=== PATIENT | male | born 1975 | race Caucasian/White ===

== ENCOUNTER → 2020-10-22 10:42 | Outpatient (BNVA) | payer MEDICARE, MEDICAID, SELFPAY | PROVIDERS: PCP Physician Assistant; Referring Provider Physician Assistant; Visit Provider Surgery | DX: Z71.83 Encounter for nonprocreative genetic counseling (principal); Z80.3 Family history of malignant neoplasm of breast | CPT/HCPCS: 99202 ==

== ENCOUNTER 2020-10-26 07:16 | Outpatient (REF) | payer MEDICARE, MEDICAID, SELFPAY ==
[2020-10-26 08:03] LABS: Hematocrit 45.3 % (42-52); Hemoglobin 15.5 g/dl (14.0-18.0); Mean Corpuscular HGB Conc 34.2 g/dl (31.0-36.0); Mean Corpuscular Hemoglobin 30.8 pg (27.0-33.0); Mean Corpuscular Volume 90.1 fL (80-98); Mean Platelet Volume 9.4 fL (9.4-12.4); Platelet Count 243 X10*3/uL (160-400); Red Blood Count 5.03 X10*6/uL (4.60-5.80); Red Cell Distribution Width 12.4 % (11.0-16.0); White Blood Count 6.7 X10*3/uL (4.8-10.8)
[2020-10-26 08:18] LABS: Estimated Average Glucose 114 mg/dL; Hemoglobin A1c % 5.6 %
[2020-10-26 08:40] LABS: TSH reflex Free T4 1.99 uIU/mL (0.32-4.0)
[2020-10-26 10:05] LABS: Alanine Aminotransferase 37 U/L (0-40); Albumin Level 4.2 g/dL (3.5-5.0); Alkaline Phosphatase 46 U/L (39-117); Anion Gap 12 (12-20); Aspartate Amino Transferase 28 U/L (5-37); Bilirubin Total 1.3 mg/dL (0.0-1.0); Blood Urea Nitrogen 16 mg/dL (9-16); Calcium 9.3 mg/dL (8.4-10.2); Carbon Dioxide 26 mmol/L (22-29); Chloride 105 mmol/L (96-108); Cholesterol 230 mg/dL; Estimated Glomerular Filt Rate > 60; Glucose Fasting 133 mg/dL (60-99); HDL Cholesterol 36 mg/dL; LDL Cholesterol Calculated 133 mg/dl; Potassium 4.2 mmol/L (3.3-5.1); Sodium 139 mmol/L (135-145); Total Protein 6.9 g/dL (6.5-8.0); Triglycerides 308 mg/dL
== END 2020-10-26 07:17 | disposition home or self-care (01) ==
LOC: HO.LAB 07:16
PROVIDERS: PCP Physician Assistant; Visit Provider Physician Assistant
DX: Z13.220 Encounter for screening for lipoid disorders (principal); Z13.29 Encounter for screening for other suspected endocrine disorder; I10 Essential (primary) hypertension
CPT/HCPCS: 36415; 80053; 80061; 83036; 84443; 85027

== ENCOUNTER → 2021-01-14 11:02 | Outpatient (BNVA) | payer MEDICAID, SELFPAY | PROVIDERS: PCP Physician Assistant; Referring Provider Physician Assistant; Visit Provider Surgery | DX: Z15.01 Genetic susceptibility to malignant neoplasm of breast (principal); Z15.09 Genetic susceptibility to other malignant neoplasm; Z15.89 Genetic susceptibility to other disease | CPT/HCPCS: 99212 ==

== ENCOUNTER 2022-10-18 14:06 | Emergency (ER) | payer OTHER, SELFPAY ==
--- NOTE | ~2022-10-18 | XR_ITS ---
EXAMINATION: XR CHEST 2 VIEWS CLINICAL INFORMATION: Chest tightness. COMPARISON: Chest radiographs dated 05/29/2019 and 05/13/2019. TECHNIQUE: Frontal and lateral views of the chest were obtained. FINDINGS: The heart, great vessels, pulmonary vasculature and mediastinum are normal. The lungs show no focal infiltrate, effusion or pneumothorax. There is no acute osseous abnormality. XR/XR chest 2V IMPRESSION: No active cardiopulmonary disease.
[2022-10-18 14:10] VITALS: BP 138/70; PULSE 87; O2SAT 97
[2022-10-18 14:35] VITALS: BP 123/74; PULSE 74; RESP 19; TEMP 36.6; O2SAT 95; BMI 35.1
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
[2022-10-18 15:55] VITALS: BP 119/83; PULSE 62; RESP 16; TEMP 36.2; O2SAT 98
== END 2022-10-18 16:44 | disposition home or self-care (01) ==
PROVIDERS: Emergency Provider Emergency Medicine
DX: R06.02 Shortness of breath (principal); R07.89 Other chest pain; Z77.098 Contact with and (suspected) exposure to other hazardous, chiefly nonmedicinal, chemicals
CPT/HCPCS: 71046; 99283; 99285

== ENCOUNTER 2022-10-31 09:24 | Outpatient (AMB) | payer OTHER, SELFPAY ==
[2022-10-31 10:24] VITALS: BP 160/100; PULSE 68; TEMP 36.1; O2SAT 95; BMI 35.3
--- NOTE | 2022-10-31 10:24 | AM.OFFWIN_ITS ---
Intake Vital Signs 10/31/22 10:24 Height 6 ft Weight 260 lb BMI 35.3 BP 160/100 H Blood Pressure Location Lt brachial Position Sitting Pulse 68 Pulse Source Pulse Oximeter Temp 97.0 F Temp Source Temporal Artery Scan Pulse Oximetry (%) 95 Oxygen Delivery Method Room Air Intake Visit Reasons: EST/right shoulder/ arm pain/[phone] Intake Note: pt is here for c/o right shoulder and arm pain, denies injury Patient Tobacco Use Status: Former Tobacco user Quit Date: 1.5 years Allergies No Known Allergies Allergy (Verified 10/31/22 10:25) Do you need a note to return to daycare/school/sports/work: Yes HPI EST/right shoulder/ arm pain/[phone] HPI Details Patient is a 46-year-old male comes the walk-in clinic complaining of right upper back/shoulder pain that radiates down the arm. He denies acute or non trauma relating to the symptoms, but does state that he sleeps on that side and he had woken with the pain. He states that he does use his shoulders frequently with his job duties. He denies chest pain, back pain, shortness of breath, cough, weakness or dizziness, nausea vomiting or diarrhea, or other significant associated symptoms. No numbness, tingling or weakness to arm distally [facility] Medical History History of deviated nasal septum Surgical History History of Achilles tendon repair Family History Mother Diabetes Father Heart disease Afib Sister Breast cancer, Onset Age: 53 Social History Housing: House Alcohol intake: current Alcohol intake frequency: holidays/special occasions only Patient Tobacco Use Status: Former Tobacco user Quit Date: 1.5 years Tobacco use type: Cigarette e-Cigarette/Vaping Use: Never Used Second Hand Smoke Exposure: No service: No Current occupational status: unemployed Cognitive needs: No Hearing needs: No Vision needs: Yes (glasses) Review of Systems Const All systems reviewed & are unremarkable except as noted in HPI and below Physical Exam Vital Signs: Last Vital Signs Temp 97.0 F 10/31/22 10:24 Pulse 68 10/31/22 10:24 BP 160/100 H 10/31/22 10:24 Pulse Ox 95 10/31/22 10:24 Oxygen Delivery Method Room Air 10/31/22 10:24 BMI result Body Mass Index 35.3 Const General: cooperative, healthy appearing, comfortable, no acute distress, alert, awake, Physically active and well groomed; No anxious, diaphoretic, ill appearing, intoxicated appearing, poor hygiene or tired appearing Nutritional Appearance: average body habitus Limitations: no limitations Resp Effort & Inspection: normal respiratory effort Extrem Right upper extremity: normal to inspection, full ROM, normal capillary refill, shoulder/upper arm (Tender to palpation at the trapezius muscle area, no joint pain) Details: normal to inspection, axillary nerve sensory function normal, normal ROM and other (Negative empty can and crossover maneuvers); no tenderness, no swelling and no deformity and Extremity exam: right hand Details: normal to inspection, normal capillary refill, neuromotor exam normal, tendon exam normal, normal ROM of fingers and no swelling; no tenderness; no cyanosis and no edema Psych Appearance: grossly normal Mental Status: mental status grossly normal Speech and movement: Normal speech and movement present Affect: normal affect Attitude: cooperative Thought process: Normal thought process present Insight: Good insight present (Psych) Judgement: Good judgement present (Psych) Assessment & Plan Assessment & Plan (1) Muscle spasm of right shoulder: Code(s): M62.838 - Other muscle spasm Plan: Patient appears to have spasm of his right trapezius, which is likely irritating the nerve going down his arm. Plain film x-ray today shows some arthritis of the AC joint but no other osseous findings. We discussed a trial of muscle relaxers, as well as naproxen for inflammation. We also will keep him out of work for a few days so that he can rest the arm, elevated and take the muscle relaxers as needed. We discussed heat stretching and [id number] exercises to avoid adhesive capsulitis. He will follow-up with primary care. Orders: Orders XR shoulder RT min 2V 10/31/22 M62.838 - Other muscle spasm AMB EKG-In Office 10/31/22 M62.838 - Other muscle spasm Medications: New naproxen 500 mg PO BID 14 days PRN 30 tabs 0RF pain cyclobenzaprine 5 mg PO TID PRN 14 tabs 0RF muscle spasm Coding Level of Care Code Est Pt Level 4 (51703) Diagnoses Muscle spasm of right shoulder M62.838
== END 2022-10-31 11:56 | disposition home or self-care (01) ==
PROVIDERS: Visit Provider Physician Assistant Medical
DX: M62.838 Other muscle spasm (principal)
CPT/HCPCS: 93000; 99051; 99214

== ENCOUNTER 2022-10-31 11:16 | Outpatient (REF) | payer OTHER, SELFPAY ==
--- NOTE | ~2022-10-31 | XR_ITS ---
EXAMINATION: XR SHOULDER , RIGHT CLINICAL INFORMATION: Injury COMPARISON: None available at the time of this dictation. TECHNIQUE: AP external rotation, Grashey, scapular Y, and axillary views of the shoulder. Total of 4 views FINDINGS: BONES: There is no fracture or dislocation, no osteolytic or osteoblastic lesion. JOINTS: Glenohumeral joint is properly positioned. 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 SOFT TISSUE AND INCLUDED LUNG: Normal. XR/XR shoulder RT min 2V IMPRESSION: Except for mild DJD of the AC joint, exam is normal.
== END 2022-10-31 11:17 | disposition home or self-care (01) ==
LOC: HO.HMGCX 11:16
PROVIDERS: PCP Physician Assistant; Visit Provider Physician Assistant Medical
DX: M62.838 Other muscle spasm (principal)
CPT/HCPCS: 73030

== ENCOUNTER 2022-11-25 09:43 | Outpatient (REF) | payer OTHER, SELFPAY ==
--- NOTE | 2022-11-25 09:46 | EMG_ITS ---
Please see scanned EMG / Nerve Conduction Report. MTDD
== END 2022-11-25 09:44 | disposition home or self-care (01) ==
LOC: HO.NEURO 09:43
PROVIDERS: PCP Physician Assistant; Visit Provider Physician Assistant
DX: G56.21 Lesion of ulnar nerve, right upper limb (principal)
CPT/HCPCS: 95885; 95910

== ENCOUNTER 2023-07-24 00:10 | Observation (INO) | payer OTHER, SELFPAY ==
[2023-07-24] VITALS (11 sets, daily range): BP systolic 155–203; BP diastolic 66–114; PULSE 67–79; RESP 12–20; TEMP 36.3–36.8; O2SAT 92–98; BMI 35.3; BMI 33.9
[2023-07-24] MEDS: Ondansetron ODT 4 MG TAB.RAPDIS TRANSLINGU (00:54)
[2023-07-24] MEDS: HYDROmorphone HCl 1 MG/ML SYRINGE IM (00:54)
--- NOTE | 2023-07-24 01:04 | ED.GENADULT ---
HPI - General Adult General Chief complaint: Dental/Oral Stated complaint: rt side face pain Time Seen by Provider: 07/24/23 00:38 Source: patient Mode of arrival: ambulatory Limitations: no limitations History of Present Illness ED Provider: Dr. Danika Mandujano HPI narrative: Patient comes emergency room complaining of severe sharp shock like sensations in the middle of on the right side. Patient states that it started today early in the morning when he was brushing his teeth. The sharp shock-like sensation occur in the middle the cheek area of the right face , radiating towards rastafarian for about 5-10 seconds. Throughout the day, it has happened multiple times. Patient went to work the patient started having more frequent electronic shock-like sensations in the same area of the face. Patient states that when he opens his mouth, it triggers the pain in the same area. Patient states that about 1 year ago he had the same symptoms which self-resolved. Patient states that in between the shock-like sensations, he feels discomfort but it is tolerable. The shock-like sensations there 10/10 pain. Patient states that he did not have any throbbing pain or any pain that may suggest he had any dental infection or injury Related Data Previous Rx's ?Medication ?Instructions ?Recorded cyclobenzaprine 5 mg tablet 5 mg PO TID PRN muscle spasm #14 10/31/22 tabs naproxen 500 mg tablet 500 mg PO BID PRN pain 14 days #30 10/31/22 tabs Allergies Allergy/AdvReac Type Severity Reaction Status Date / Time No Known Allergies Allergy Verified 07/24/23 00:15 Review of Systems Review of Systems: Constitutional : No Weight loss, No Fever, No Chills, No Night Sweats, No Fatigue, No Malaise ENT/Mouth : No Hearing loss, No Ear Pain, No Nasal Congestion, No Sinus Pain, No Hoarseness, No sore throat, No Rhinorrhea, No Swallowing Difficulty Eyes: No Eye Pain, No Swelling, No Redness, No Foreign Body, No Discharge, No Vision Changes Cardiovascular : No Chest Pain, No SOB, No Dyspnea on Exertion, No Orthopnea, No Edema, No Palpitations Respiratory : No Cough, No Sputum, No Wheezing, No Smoke Exposure, No Dyspnea Gastrointestinal : No Nausea, No Vomiting, No Diarrhea, No Constipation, No abdominal Pain, No Hematochezia, No Melena Genitourinary : no irregular bleeding, No Dysuria, No Urinary Frequency, No Hematuria, No Urinary Incontinence, No Urgency, No Flank Pain, No Urinary Flow Changes, No Hesitancy Musculoskeletal : No joint pain, No Myalgias, No Joint Swelling Skin : No Skin Lesions, No rash Neuro : No Weakness, No Numbness, No Paresthesias, No Loss of Consciousness, No Dizziness, No Headache complaining of shock-like sensation in the middle of the face, triggered by brushing tooth or opening the mouth Psych : No Anxiety/Panic, No Depression, No SI/HI/AH/VH, No Social Issues, Heme/Lymph: No Bruising, No Bleeding,No Lymphadenopathy Endocrine : No Polyuria, No Polydipsia, No Temperature Intolerance [facility] Past Medical History Medical History History of deviated nasal septum Surgical History History of Achilles tendon repair Family History Family History Mother Diabetes Father Heart disease Afib Sister Breast cancer, Onset Age: 53 Social History Social History Housing: House Alcohol intake: current Alcohol intake frequency: holidays/special occasions only Alcohol type: beer Patient Tobacco Use Status: Former Tobacco user Tobacco use type: Cigarette e-Cigarette/Vaping Use: Never Used Second Hand Smoke Exposure: No Use of substances other than those prescribed or required for medical reasons: No Advance Directives: No Advance Directives Information Provided: Yes Do you have a plan to hurt others: No Plan service: No Current occupational status: unemployed Cognitive needs: No Hearing needs: No Vision needs: Yes (glasses) Physical Exam ED Vital Signs: Vital Signs - 24 hr 07/24/23 00:10 07/24/23 00:54 07/24/23 02:13 Temperature 98.2 F Pulse Rate 79 Respiratory Rate 18 20 16 Blood Pressure 203/114 H Pulse Oximetry 97 Oxygen Delivery Method Room Air 07/24/23 04:00 07/24/23 04:09 Temperature Pulse Rate 76 Respiratory Rate 16 12 Blood Pressure 176/102 H Pulse Oximetry 94 Oxygen Delivery Method Room Air BMI result Body Mass Index 35.3 Const Other: Appearance: Alert. Oriented X3. Patient looks in pain Eyes: Pupils equal, round and reactive to light. ENT: Pharynx normal. Patient has shock-like sensations occasionally when he does open his mouth., patient does not have any clicking sounds with opening and closing the jaw, no pain on the left side. Patient does not have any dental abscesses, gingivitis or any oral lesions, no pain to palpation in any of the teeth Neck: Normal inspection. Neck supple. No lymph nodes noted. No crepitus CVS: Normal heart rate and rhythm. Pulses normal. Normal S1 and S2 Respiratory: No respiratory distress. Breath sounds normal. No Wheezing. No rales Abdomen: Soft and nontender. No rigidity. No distention. Skin: Skin warm and dry. Normal skin color. Normal skin turgor. Extremities: No lower extremity edema. No Lacerations. No Rash Neuro: Oriented X 3. No motor deficit. No sensory deficit. Moving all extremities. No slurred speech. CN 2 through 12 grossly intact Psych: calm, cooperative, normal affect Course Course Course Narrative: -from what patient is describing, including showed in thumbs shock-like sensations in the trigeminal distribution V2, severe paroxysmal pain, unilateral, triggered by brushing teeth, opening mouth, smiling, patient likely experiencing trigeminal neuralgia affecting the maxillary zone, V2 -discussed with the patient that this is a clinical diagnosis, imaging at this time would not yield any information. Is possible the patient may need an MRI in the morning to rule out other etiologies and it may be possible to see a nerve compression. -patient was given under the tongue ondansetron and IM Dilaudid 1. However, patient did not have significant relief. -an IV was inserted, given ketorolac, 1 more mg of hydromorphone and also the 1st dose of carbamazepine 100 mg -patient states that he feels is improving but still having pain especially when he opens his mouth. -patient still having intermittent shooting pain. Patient will be getting 450mg oxcarbamazepine, starting dose -I discussed the patient with Dr. Jones from the Medicine team, we will admit for pain management. Patient agrees with plan -is possible in the morning, they may be able to get an MRI in the neurology consult. Medications Administered Discontinued Medications Generic Name Dose Route Start Last Admin Trade Name Freq PRN Reason Stop Dose Admin Carbamazepine 100 mg 07/24/23 00:59 07/24/23 01:14 Carbamazepine 100 Mg Tab.Chew PO 07/24/23 01:00 100 mg ONCE ONE Administration Gabapentin 300 mg 07/24/23 04:55 07/24/23 05:23 Gabapentin 300 Mg Capsule PO 07/24/23 04:56 300 mg ONCE STA Administration Hydromorphone HCl 1 mg 07/24/23 00:48 07/24/23 00:54 Hydromorphone Hcl 1 Mg/Ml Syringe IM 07/24/23 00:49 1 mg ONCE ONE Administration Protocol Hydromorphone HCl 1 mg 07/24/23 01:50 07/24/23 02:13 Hydromorphone Hcl 1 Mg/Ml Syringe IVPUSH 07/24/23 01:51 1 mg ONCE ONE Administration Protocol Hydromorphone HCl 1 mg 07/24/23 04:02 07/24/23 04:09 Hydromorphone Hcl 1 Mg/Ml Syringe IVPUSH 07/24/23 04:03 1 mg ONCE ONE Administration Protocol Ketorolac Tromethamine 30 mg 07/24/23 01:49 07/24/23 01:53 Ketorolac Tromethamine 30 Mg/Ml Vial IVPUSH 07/24/23 01:50 30 mg ONCE ONE Administration Ondansetron HCl 4 mg 07/24/23 00:48 07/24/23 00:54 Ondansetron Odt 4 Mg Tab.Rapdis TRANSLINGU 07/24/23 00:49 4 mg ONCE ONE Administration Oxcarbazepine 450 mg 07/24/23 04:46 07/24/23 04:48 Oxcarbazepine 150 Mg Tablet PO 07/24/23 04:47 450 mg ONCE ONE Administration Sumatriptan Succinate 6 mg 07/24/23 05:11 07/24/23 05:23 Sumatriptan Succinate 6 Mg/0.5 Ml Vial SUBCUT 07/24/23 05:12 6 mg ONCE STA Administration Medical Decision Making Differential Diagnosis Differential Diagnoses: The differential diagnosis associated with the presentation includes (Trigeminal neuralgia, complex migraine) Admission/Observation Consideration of admission/observation: Escalation of care including admission/observation considered Consult Healthcare Provider Management of the patient was discussed with: Hospitalist Lab Data MDM Lab Attestation statement: I reviewed the patient's lab results. 07/24/23 03:19 07/24/23 03:19 Labs: Lab Results 07/24/23 Range/Units 03:19 WBC 8.1 (4.8-10.8) X10*3/uL RBC 4.61 (4.60-5.80) X10*6/uL Hgb 14.8 (14.0-18.0) g/dl Hct 42.0 (42.0-52.0) % MCV 91.1 (80.0-98.0) fL MCH 32.1 (27.0-33.0) pg MCHC 35.2 (31.0-36.0) g/dl RDW 12.3 (11.0-16.0) % Plt Count 211 (160-400) X10*3/uL MPV 8.8 L (9.4-12.4) fL Immature Gran % (Auto) 0.5 H (0.0-0.4) % Neut % (Auto) 59.4 (45-73) % Lymph % (Auto) 27.4 (20-40) % Fannin % (Auto) 10.0 (2-11) % Eos % (Auto) 2.3 (0-4) % Baso % (Auto) 0.4 (0-2) % Lymph # (Auto) 2.2 (1.2-4.9) X10*3/uL Fannin # (Auto) 0.8 (0.1-1.2) X10*3/uL Eos # (Auto) 0.2 (0.0-0.4) X10*3/uL Baso # (Auto) 0.0 (0.0-0.2) X10*3/uL Abs Immat Gran (auto) 0.04 H (0.00-0.03) X10*3/uL Absolute Neuts (auto) 4.8 (2.0-8.3) x10*3/uL Absolute Nucleated RBC 0.000 (0.0-0.012) X10*3/uL Nucleated RBC % (auto) 0.0 (0.0-0.2) /100WBC ESR 3 (0-15) MM/HR Sodium 140 (135-145) mmol/L Potassium 3.9 (3.3-5.1) mmol/L Chloride 104 (96-108) mmol/L Carbon Dioxide 26 (22-29) mmol/L Anion Gap 14 (12-20) BUN 15 (9-16) mg/dL Creatinine 0.77 (0.5-1.4) mg/dL Estim Creat Clear Calc 153.8 Estimated GFR > 60 Random Glucose 122 H (60-115) mg/dL Calcium 9.2 (8.4-10.2) mg/dL C-Reactive Protein < 0.10 (< or = 0.50) mg/dL Critical Care Time Critical Care Time Critical Care Time: Yes Total Critical Care Time: 60 Attestation: I have personally provided critical care time. Time includes review of lab data, radiology results, discussion with consultants, and monitoring for potential decompensation. Intervention performed as documented. Discharge Plan Discharge Clinical Impression: Right trigeminal neuralgia Patient Disposition: Admitted As Inpatient
[2023-07-24] MEDS: carBAMazepine 100 MG TAB.CHEW PO (01:14)
[2023-07-24] MEDS: Ketorolac Tromethamine 30 MG/ML VIAL IVPUSH (01:53)
[2023-07-24] MEDS: HYDROmorphone HCl 1 MG/ML SYRINGE IVPUSH ×2 (02:13→04:09)
[2023-07-24 03:22] LABS: MANUAL DIFF FLAG NO
[2023-07-24 03:24] LABS: Basophils Percent Auto 0.4 % (0-2); Eosinophils Absolute Auto 0.2 X10*3/uL (0.0-0.4); Eosinophils Percent Auto 2.3 % (0-4); Hemoglobin 14.8 g/dl (14.0-18.0); Imm Gran Abs Auto 0.04 X10*3/uL (0.00-0.03); Imm Gran Pct Auto 0.5 % (0.0-0.4); Lymphocytes Absolute Auto 2.2 X10*3/uL (1.2-4.9); Lymphocytes Percent Auto 27.4 % (20-40); Mean Corpuscular HGB Conc 35.2 g/dl (31.0-36.0); Mean Corpuscular Hemoglobin 32.1 pg (27.0-33.0); Mean Corpuscular Volume 91.1 fL (80.0-98.0); Mean Platelet Volume 8.8 fL (9.4-12.4); Monocytes Absolute Auto 0.8 X10*3/uL (0.1-1.2); Neutrophils Absolute Auto 4.8 x10*3/uL (2.0-8.3); Neutrophils Percent Auto 59.4 % (45-73); Platelet Count 211 X10*3/uL (160-400); Red Blood Count 4.61 X10*6/uL (4.60-5.80); Red Cell Distribution Width 12.3 % (11.0-16.0); White Blood Count 8.1 X10*3/uL (4.8-10.8)
[2023-07-24 03:37] LABS: Anion Gap 14 (12-20); Blood Urea Nitrogen 15 mg/dL (9-16); Calcium 9.2 mg/dL (8.4-10.2); Carbon Dioxide 26 mmol/L (22-29); Chloride 104 mmol/L (96-108); Creatinine Clr Calc Pharmacy 153.8; Estimated Glomerular Filt Rate > 60; Glucose Random 122 mg/dL (60-115); Potassium 3.9 mmol/L (3.3-5.1); Sodium 140 mmol/L (135-145)
--- NOTE | 2023-07-24 04:22 | PC.NURSE ---
Patient is alert and oriented x3. Patient complaints of severe pain in right face/neck, pain has been ranging from 8/10-10/10 despite administration of pain medications. Plan for hospital admission for pain management, neurology consult, patient may need MRI in the morning.
[2023-07-24 04:29] LABS: C Reactive Protein < 0.10 mg/dL (< or = 0.50)
[2023-07-24 04:46] LABS: Erythrocyte Sedimentation Rate 3 MM/HR (0-15)
[2023-07-24] MEDS: OXcarbazepine 150 MG TABLET 450 MG PO (04:48)
[2023-07-24] MEDS: SUMAtriptan succinate 6 MG/0.5 ML VIAL SUBCUT (05:23)
[2023-07-24] MEDS: Gabapentin 300 MG CAPSULE PO ×5 (05:23→21:40)
--- NOTE | 2023-07-24 05:51 | P.HPHOSP_ITS ---
History of Present Illness Date of Service: 07/24/23 Attending physician on admission: Robel Dumont Chief Complaint: Right facial pain Arthur Ferrari is a 47 years old man presents to the emergency department complaining of severe right facial pain. Patient's brother was at bedside and provided most of the HPI as the patient was in severe pain. Patient was unable to speak well as this will triggers the pain. The pain started this morning and has been radiates from the right mouth corner to the right ear. It is described as a sharp like sensation. The pain increases with eating, mouth opening and tooth brushing. He has a similar episode in the past that has been self- limited. There is no history of recent dental fillings or procedures. In the ED, he was found to have stable vital signs. Blood workup including CBC, CRP and CMP unremarkable. ED tx: Zofran 4 mg IV, Dilaudid 3 mg IV (total), Tegretol 500 mg p.o., Toradol 30 mg IV Review of Systems 2 Review of Systems: All 12 systems were reviewed and normal except as noted in HPI. [facility] Medical History History of deviated nasal septum Family History Mother Diabetes Father Heart disease Afib Sister Breast cancer, Onset Age: 53 Surgical History History of Achilles tendon repair Social History Housing: House Alcohol intake: current Alcohol intake frequency: holidays/special occasions only Alcohol type: beer Patient Tobacco Use Status: Former Tobacco user Tobacco use type: Cigarette e-Cigarette/Vaping Use: Never Used Second Hand Smoke Exposure: No service: No Current occupational status: unemployed Cognitive needs: No Hearing needs: No Vision needs: Yes (glasses) Meds Allergies Allergy/AdvReac Type Severity Reaction Status Date / Time No Known Allergies Allergy Verified 07/24/23 00:15 Active Medications: Current Medications Sodium Chloride (0.9 % Sodium Chloride Flush 3 Ml Syringe) 3 ml IVFLUSH QSHIFT [facility] Physical Exam 2 Vital Signs and Narrative: Vital Signs: Last Vital Signs Temp 98.2 F 07/24/23 00:10 Pulse 76 07/24/23 04:00 Resp 12 07/24/23 04:09 BP 176/102 H 07/24/23 04:00 Pulse Ox 94 07/24/23 04:00 O2 Del Method Room Air 07/24/23 04:00 BMI result Body Mass Index 35.3 Unable to perform as the patient was in acute distress secondary to right facial pain Results Labs 07/24/23 03:19 07/24/23 03:19 Labs: Laboratory Results - last 24 hr 07/24/23 03:19 MCV 91.1 MCH 32.1 MCHC 35.2 RDW 12.3 Plt Count 211 MPV 8.8 L Immature Gran % (Auto) 0.5 H Neut % (Auto) 59.4 Lymph % (Auto) 27.4 Crawford % (Auto) 10.0 Eos % (Auto) 2.3 Baso % (Auto) 0.4 Lymph # (Auto) 2.2 Crawford # (Auto) 0.8 Eos # (Auto) 0.2 Baso # (Auto) 0.0 Abs Immat Gran (auto) 0.04 H Absolute Neuts (auto) 4.8 Absolute Nucleated RBC 0.000 Nucleated RBC % (auto) 0.0 ESR 3 Anion Gap 14 Estim Creat Clear Calc 153.8 Estimated GFR > 60 Random Glucose 122 H Calcium 9.2 C-Reactive Protein < 0.10 Assessment and Plan (1) Right trigeminal neuralgia: Status: Acute (2) Borderline high cholesterol: Status: Acute Plan Arthur Ferrari is a 47 years old man who presents to the emergency department with intractable right facial pain likely secondary to: * Trigeminal neuralgia, V3. Patient will keep in observation under the hospitalist service for pain control. We will start treatment with Imitrex 6 mg subQ as rescue therapy in addition to oxcarbazepine 450 mg PO bid and gabapentin 300 mg PO tid. Will obtain neurology consult. Quality Stroke Does the patient have a stroke diagnosis?: No VTE Prior VTE?: No VTE Risk Level:: Surgical - low VTE Device Contraindication: Treatment Not Indicated VTE Drug Contraindication: Treatment Not Indicated
--- NOTE | 2023-07-24 07:53 | PHA.MEDREC ---
Pharmacy Consult ? Medication Reconciliation Pharmacy has completed the medication reconciliation.
[2023-07-24] MEDS: 0.9 % Sodium Chloride Flush 3 ML SYRINGE IVFLUSH ×2 (08:17→15:58)
--- NOTE | 2023-07-24 10:37 | MHC.EDTECH ---
Offered patient breakfast, he asked for it to be by bedside. He did not eat due to the pain in his neck and jaw.
--- NOTE | 2023-07-24 11:17 | PM.EVENT ---
Event Note Date of Service: 07/24/23 Event Note: Day hospitalist update S: intermittent burning facial pain O: Temp Pulse Resp BP Pulse Ox O2 Del Method 97.7 F 68 18 181/104 H 98 Room Air 07/24/23 08:10 07/24/23 08:10 07/24/23 08:10 07/24/23 08:10 07/24/23 08:10 07/24/23 08:10 Gen: in no acute distress HEENT: sclera anicteric, moist mucus membranes Neck: supple Lungs: clear to auscultation bilaterally Heart: regular rate and rhythm, no murmurs Abd: soft, non-tender, non-distended Ext: no edema Skin: warm/well-perfused Neuro: alert and oriented x3, no focal findings Psych: appropriate affect A/P: d1 47yo M with no chronic PMHx presenting with severe R neuropathic pain suspicious for trigeminal neuralgia, admitted for pain control - given sumatriptan x1, IV hydromorphone x3, ketorolac 30 mg; - continue gabapentin + oxcarbazepine - Neurology consult pending VTE ppx -SCDs dispo - eventual home In my clinical judgment, the patient requires continued hospitalization for the following reasons: pain control Time Spent With Patient Time: Total time managing care of this patient today ____ minutes.
[2023-07-24] MEDS: SUMAtriptan succinate 50 MG TABLET PO (12:16)
--- NOTE | 2023-07-24 13:46 | P.CNNE_ITS ---
History of Present Illness Data of Consult Service Date: 07/24/23 Primary Care Provider: Michael Lennon PA-C HPI Reason for consult: Facial pain 47 years old man with right-sided facial pain. He said that he 1st head it about a year ago but it was not that bad. He was in hospital with extremely sharp pain and was not able to provide any meaningful history barely able to open his mouth and talk. He was sobbing. He said the pain was shooting jabbing type on right side of the face. Review of Systems 2 Review of Systems: No recent cold or flu-like illness PMFSH Past Medical History Medical History History of deviated nasal septum Family History Family History Mother Diabetes Father Heart disease Afib Sister Breast cancer, Onset Age: 53 Surgical History Surgical History History of Achilles tendon repair Social History Social History Housing: House Alcohol intake: current Alcohol intake frequency: holidays/special occasions only Alcohol type: beer Patient Tobacco Use Status: Former Tobacco user Tobacco use type: Cigarette e-Cigarette/Vaping Use: Never Used Second Hand Smoke Exposure: No service: No Current occupational status: unemployed Cognitive needs: No Hearing needs: No Vision needs: Yes (glasses) Meds Allergies Allergy/AdvReac Type Severity Reaction Status Date / Time No Known Allergies Allergy Verified 07/24/23 00:15 Active Medications: Current Medications Gabapentin (Gabapentin 300 Mg Capsule) 300 mg PO TID COUNT INCLUDES THE [facility] Last Admin: 07/24/23 08:16 Dose: 300 mg Oxcarbazepine (Oxcarbazepine 150 Mg Tablet) 450 mg PO BID@0500,1700 COUNT INCLUDES THE [facility] Sodium Chloride (0.9 % Sodium Chloride Flush 3 Ml Syringe) 3 ml IVFLUSH QSHIFT COUNT INCLUDES THE [facility] Last Admin: 07/24/23 08:17 Dose: 3 ml Home Medications ?Medication ?Instructions ?Recorded ?Confirmed ?Last Taken ?Type ibuprofen 200 mg tablet 400 mg PO Q8H PRN Pain 07/24/23 07/24/23 Unknown History Physical Exam 2 Vital Signs: Vital Signs: Last Vital Signs Temp 97.7 F 07/24/23 08:10 Pulse 68 07/24/23 08:10 Resp 18 07/24/23 08:10 BP 181/104 H 07/24/23 08:10 Pulse Ox 98 07/24/23 08:10 O2 Del Method Room Air 07/24/23 08:10 BMI result Body Mass Index 35.3 Neuro: Other: Slightly drowsy but I was able to wake him up. Right away he put his right hand on the face and started sobbing stating that the pain was severe. He was moving his face and jolts like fashion with every job of pain. There was no obvious facial weakness. Speech or language were normal. Deep tendon reflexes were trace to absent. Exam was limited. Results Labs 07/24/23 03:19 07/24/23 03:19 Labs: Short CBC 07/24/23 Range/Units 03:19 WBC 8.1 (4.8-10.8) X10*3/uL Hgb 14.8 (14.0-18.0) g/dl Hct 42.0 (42.0-52.0) % Plt Count 211 (160-400) X10*3/uL BMP 07/24/23 03:19 Sodium 140 Potassium 3.9 Chloride 104 Carbon Dioxide 26 BUN 15 Creatinine 0.77 Calcium 9.2 Assessment and Plan (1) Right trigeminal neuralgia: Status: Acute 47 years old man with right trigeminal neuralgia. At this time I recommend changing his medicines to carbamazepine 200 mg 3 times a day instead of oxcarbazepine. Carbamazepine is the most effective medicine for this type of pain. Gabapentin may also continue. I would also recommend giving him a dose of Solu-Medrol 500 mg as steroid sometimes can help. Nonsteroidal anti- inflammatory agents and Triptan its would not help. An MRI of brain with and without contrast with concentration to trigeminal nerve is recommended to rule out any mechanical lesion, which can be treated with surgical decompression. Procedures Date of Service Date of Service: 07/24/23
[2023-07-24] MEDS: carBAMazepine 200 MG TABLET PO ×2 (15:58→21:40)
[2023-07-24] MEDS: methylPREDNISolone Sod Succ 125 MG/2 ML VIAL IVPUSH (15:58)
[2023-07-24] MEDS: HYDROmorphone HCl 0.5 MG/0.5 ML SYRINGE IVPUSH ×2 (16:18→21:43)
[2023-07-25] VITALS (8 sets, daily range): BP systolic 131–170; BP diastolic 74–96; PULSE 73–91; RESP 14–18; TEMP 36–36.8; O2SAT 94–97
[2023-07-25] MEDS: 0.9 % Sodium Chloride Flush 3 ML SYRINGE IVFLUSH ×3 (07:40→20:13)
[2023-07-25] MEDS: Gabapentin 300 MG CAPSULE PO ×3 (07:40→20:12)
[2023-07-25] MEDS: carBAMazepine 200 MG TABLET PO ×3 (07:40→20:13)
--- NOTE | 2023-07-25 10:11 | HO.PM.IMPN ---
Subjective Subjective Date of Service: 07/25/23 Interval History: R-sided electric facial pain attacks are fewer and less severe no visual blurring Review of Systems Review of Systems: Yes all other systems are reviewed and are negative Physical Exam Vital Signs: Vital Signs: Last Vital Signs Temp 97.4 F 07/25/23 07:07 Pulse 75 07/25/23 07:07 Resp 16 07/25/23 07:07 BP 143/96 H 07/25/23 07:07 Pulse Ox 94 07/25/23 07:07 O2 Del Method Room Air 07/25/23 07:07 BMI result Body Mass Index 33.9 Gen: in no acute distress HEENT: sclera anicteric, moist mucus membranes Neck: supple Lungs: clear to auscultation bilaterally Heart: regular rate and rhythm, no murmurs Abd: soft, non-tender, non-distended Ext: no edema Skin: warm/well-perfused Neuro: alert and oriented x3, CN2-12 intact Psych: appropriate affect Objective Data Active Medications Carbamazepine (Carbamazepine 200 Mg Tablet) 200 mg PO TID [facility] Last Admin: 07/25/23 07:40 Dose: 200 mg Documented By: DWAINE Gabapentin (Gabapentin 300 Mg Capsule) 300 mg PO TID [facility] Last Admin: 07/25/23 07:40 Dose: 300 mg Documented By: DWAINE Hydromorphone HCl (Hydromorphone Hcl 0.5 Mg/0.5 Ml Syringe) 0.5 mg IVPUSH Q3H PRN; Protocol PRN Reason: severe pain Last Admin: 07/24/23 21:43 Dose: 0.5 mg Documented By: ISABEL Sodium Chloride (0.9 % Sodium Chloride Flush 3 Ml Syringe) 3 ml IVFLUSH [facility] Last Admin: 07/25/23 07:40 Dose: 3 ml Documented By: DWAINE Labs 07/24/23 03:19 07/24/23 03:19 Assessment and Plan (1) Right trigeminal neuralgia: Status: Acute Plan d2 47yo M with no chronic PMHx presenting with severe R neuropathic pain suspicious for trigeminal neuralgia, admitted for pain control - continue gabapentin + oxcarbazepine - Neurology consulted; given 1-dose methylprednisolone; continue gabapentin + oxcarbazpine; PO oxycodone + IV hydromorphone for pain control; MRI with and without contrast recommended and will be done tomorrow VTE ppx -SCDs dispo - eventual home In my clinical judgment, the patient requires continued hospitalization for the following reasons: pain control, neurologic workup Total time managing care of this patient today: 35 minutes. Quality Stroke Does the patient have a stroke diagnosis?: No VTE Prior VTE?: No VTE Risk Level:: Surgical - low VTE Device Contraindication: Treatment Not Indicated VTE Drug Contraindication: Treatment Not Indicated
--- NOTE | 2023-07-25 11:20 | MHC.CM.PN ---
PT LIVES WITH BROTHER IS INDEPEDENT WILL NOT NEED SERIES WHEN DCD HAS OWN RIDE HOME DC PLAN HOME NO SERVIES
[2023-07-25] MEDS: HYDROmorphone HCl 0.5 MG/0.5 ML SYRINGE IVPUSH ×2 (13:33→16:43)
[2023-07-25] MEDS: oxyCODONE HCl Immed Release 5 MG TABLET PO (20:12)
[2023-07-26 03:22] VITALS: BP 161/76; PULSE 68; RESP 16; TEMP 36.3; O2SAT 96
[2023-07-26 06:53] VITALS: BP 152/80; PULSE 62; RESP 16; TEMP 36.6; O2SAT 96
[2023-07-26 07:28] VITALS: RESP 17
[2023-07-26] MEDS: 0.9 % Sodium Chloride Flush 3 ML SYRINGE IVFLUSH (07:28)
[2023-07-26] MEDS: HYDROmorphone HCl 0.5 MG/0.5 ML SYRINGE IVPUSH (07:28)
[2023-07-26] MEDS: Gabapentin 300 MG CAPSULE PO (07:28)
[2023-07-26] MEDS: carBAMazepine 200 MG TABLET PO (07:28)
[2023-07-26] MEDS: oxyCODONE HCl Immed Release 5 MG TABLET PO (11:12)
--- NOTE | 2023-07-26 11:35 | P.DS_ITS ---
DS: Providers Provider Date of Service: 07/26/23 Date of admission: 07/24/23 05:12 Primary care physician: Michael Lennon PA-C Consults: 07/24/23 05:02 Consult to Neurology Routine Consulting Provider: [facility] Reason for consultation: Intractable trigeminal neuralgia Has provider been notified: No 07/24/23 06:14 Consult to Neurology Routine Consulting Provider: [facility] Reason for consultation: Intractable facial pain, trigeminal neuralgia Has provider been notified: No DS: Diagnosis Discharge Diagnosis (1) Right trigeminal neuralgia: Status: Acute DS: Summary Hospital Course Hospital Course: from initial hpi: 47 years old man presents to the emergency department complaining of severe right facial pain. Patient's brother was at bedside and provided most of the HPI as the patient was in severe pain. Patient was unable to speak well as this will triggers the pain. The pain started this morning and has been radiates from the right mouth corner to the right ear. It is described as a sharp like sensation. The pain increases with eating, mouth opening and tooth brushing. He has a similar episode in the past that has been self-limited. There is no history of recent dental fillings or procedures. In the ED, he was found to have stable vital signs. Blood workup including CBC, CRP and CMP unremarkable. ED tx: Zofran 4 mg IV, Dilaudid 3 mg IV (total), Tegretol 500 mg p.o., Toradol 30 mg IV hospital course: Patient was admitted for severe right trigeminal neuralgia pain. He was treated with carbamazepine and gabapentin and oxycodone with improvement. He was seen by neurology recommended MRI with and without contrast to rule out obstructing vessel which will be performed as outpatient early this week. He will follow up with Neurology and possible vascular surgery depending on results of MRI. Time Attestation Discharge Coordination Time (in mins): 32 Quality: Safe Use of Opioids Does Pt have an Active Cancer Diagnosis on the Problem List?: No Quality: Stroke Does the patient have a stroke diagnosis?: No Physical Exam Vital Signs: Vital Signs: Last Vital Signs Temp 98 F 07/26/23 06:53 Pulse 62 07/26/23 06:53 Resp 17 07/26/23 07:28 BP 152/80 H 07/26/23 06:53 Pulse Ox 96 07/26/23 06:53 O2 Del Method Room Air 07/26/23 06:53 BMI result Body Mass Index 33.9 Gen: in no acute distress HEENT: sclera anicteric, moist mucus membranes Neck: supple Lungs: clear to auscultation bilaterally Heart: regular rate and rhythm, no murmurs Abd: soft, non-tender, non-distended Ext: no edema Skin: warm/well-perfused Neuro: alert and oriented x3, CN2-12 intact Psych: appropriate affect Discharge Plan Discharge Patient Disposition: Home, Self-Care Discharge Diagnosis: trigeminal neuralgia Referrals: Michael Lennon PA-C [Primary Care Provider] - 1 Week Sol Cardona MD [Physician] - 1 Month Discharge Medications: New carbamazepine 200 mg Tablet 200 mg PO TID Qty: 90 0RF gabapentin 300 mg Capsule 300 mg PO TID Qty: 90 0RF oxycodone 5 mg capsule 5 mg PO Q4H PRN (Reason: moderate pain (scale score 5-6)) Qty: 14 0RF Rx Instructions: Partial Fill upon patient request. Discontinued ibuprofen 200 mg Tablet 400 mg PO Q8H PRN (Reason: Pain) Discharge Orders: Discharge Order (Routine); Ordered 07/26/23 Ordered By: Bharath Parish Diet: Advance to usual diet Activity on Discharge: As tolerated Stand Alone Forms: Patient Portal Discharge page Print Language: Guamanian Other Ambulatory Orders: MR head/brain wo/w con (Routine) Timeframe: 1 Day Facility: [facility] - Location: MRI Ordered By: Bharath Parish Care Plan Goals: relief of pain Health Concerns: trigeminal neuralgia Plan of Treatment: take carbamazepine [Tegretol] 200 mg 3x a day PLUS gabapentin [Neurontin] 300 mg 3x a day take oxycodone 5 mg every 4 hours as needed for severe pain only follow up with Dr Jhonatan Cardona from [facility] Neurology follow up MRI tomorrow or wednesday (call to confirm time) Assessment: see above
--- NOTE | 2023-07-26 11:41 | MHC.CM.PN ---
PT WILL DC HOME TODAY WITH NO SERVICES VIA PRIVATE TRANSPORT
== END 2023-07-26 12:57 | disposition home or self-care (01) ==
LOC: HO.ED 04:01 → HO.EDOVER 05:13 → HO.S3 13:22
PROVIDERS: Admitting Provider Internal Medicine; Emergency Provider Emergency Medicine; PCP Physician Assistant; Visit Provider Internal Medicine
DX: G50.0 Trigeminal neuralgia (principal); R51.9 Headache, unspecified; Z83.3 Family history of diabetes mellitus; Z82.49 Family history of ischemic heart disease and other diseases of the circulatory system
CPT/HCPCS: 36415; 80048; 85025; 85652; 86140; 96372; 96374; 96375; 96376; 99221; 99285; J1170; J1885; J2919; J3030

== ENCOUNTER → 2023-07-24 05:12 | Outpatient (BNV) | payer OTHER, SELFPAY | PROVIDERS: Admitting Provider Internal Medicine; Emergency Provider Emergency Medicine; PCP Physician Assistant; Visit Provider Psychiatry & Neurology Neurology | DX: G50.0 Trigeminal neuralgia (principal) | CPT/HCPCS: 99222 ==

== ENCOUNTER → 2023-07-24 05:12 | Outpatient (BNV) | payer OTHER, SELFPAY | PROVIDERS: Admitting Provider Internal Medicine; Emergency Provider Emergency Medicine; PCP Physician Assistant; Visit Provider Family Medicine | DX: G50.0 Trigeminal neuralgia (principal); E78.9 Disorder of lipoprotein metabolism, unspecified | CPT/HCPCS: 99222; 99232; 99239; 99499 ==

== ENCOUNTER 2023-08-05 13:10 | Outpatient (REF) | payer OTHER, SELFPAY ==
--- NOTE | ~2023-08-05 | MR_ITS ---
EXAMINATION: MR BRAIN WITHOUT AND WITH CONTRAST CLINICAL INFORMATION: Severe right-sided facial pain. Trigeminal neuralgia. COMPARISON: CT head from 08/28/2015. TECHNIQUE: Multiplanar, multisequence MRI of the brain was obtained using a skull base protocol without and following the administration of 10 mL of Gadavist intravenous contrast. FINDINGS: No focal restricted diffusion is demonstrated to suggest acute or subacute cerebral ischemia. No evidence of acute or chronic hemorrhagic products on heme-sensitive imaging. Scattered nonspecific periventricular and deep white matter T2 FLAIR hyperintensities. The ventricles are normal in morphology and size. No abnormal mass effect. No midline shift. Normal appearance of the pituitary gland. Normal positioning of the cerebellar tonsils. No mass of the cerebellopontine angles. Normal appearance of the bilateral cranial nerve V nerve roots. Normal appearance of Meckel's caves bilaterally. 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 Normal appearance of the right-sided cranial nerve VII and VIII nerve root entry sites. No demonstrated abnormal signal change within the adjacent brainstem. No edema near the nerve root entry sites. Otherwise, normal appearance of the cranial nerve V, VII, and VIII nerve roots. Normal appearance of the internal auditory canals without enhancing mass lesions. No abnormal enhancement along the course of the facial nerves bilaterally. Normal appearance of the labyrinthine structures without loss of T2 signal or abnormal enhancement. Normal arterial and venous vascular flow voids are present. No abnormal intracranial contrast enhancement. Normal, homogeneous marrow signal. Moderate mucosal thickening of the right-sided atelectatic maxillary sinus. Mild mucosal thickening of the remaining paranasal sinuses. Mild rightward nasal septal deviation. No signal abnormalities within the mastoids. MR/MR head/brain wo/w con IMPRESSION: 1. No acute intracranial abnormalities. No abnormal intracranial enhancement. 2. Mild nonspecific white matter changes. 3. 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 No demonstrated abnormal signal change within the adjacent brainstem. 4. Moderate mucosal thickening of the right-sided atelectatic maxillary sinus.
[2023-08-05] MEDS: gadobutroL 10 ML VIAL IVPUSH (14:35)
== END 2023-08-05 13:11 | disposition home or self-care (01) ==
LOC: HO.MRI 13:10
PROVIDERS: Visit Provider Internal Medicine
DX: G50.0 Trigeminal neuralgia (principal)
CPT/HCPCS: 70553; A9585

== ENCOUNTER 2023-10-20 10:00 | Outpatient (AMB) | payer OTHER, SELFPAY ==
--- NOTE | 2023-10-20 10:21 | A.OFFPC_ITS ---
Vital Signs 10/20/23 10:22 Height 6 ft Weight 257 lb BMI 34.9 BP 132/80 Blood Pressure Location Lt brachial Position Sitting Respiration 16 Pulse 63 Pulse Source Pulse Oximeter Pulse Oximetry (%) 94 Oxygen Delivery Method Room Air Intake Visit Reasons: chk up f/u [employer] Required: No Accompanied by: Self / Same As Patient Allergies No Known Allergies Allergy (Verified 10/20/23 10:24) Tobacco use date assessed: 10/20/23 Dental Screening Dental Screen Date: 10/20/23 Did you have a dental visit in the last 12 months?: Yes Did you have a dental problem in the last 6 months where you did not have access to dental care?: No Was dental information given to patient?: Patient has dentist [facility] Medical History History of deviated nasal septum Surgical History History of Achilles tendon repair Family History Mother Diabetes Father Heart disease Afib Sister Breast cancer, Onset Age: 53 Social History Housing: House Alcohol intake: current Alcohol intake frequency: holidays/special occasions only Alcohol type: beer Patient Tobacco Use Status: Former Tobacco user Tobacco use type: Cigarette e-Cigarette/Vaping Use: Never Used Second Hand Smoke Exposure: No service: No Current occupational status: unemployed Cognitive needs: No Hearing needs: No Vision needs: Yes (glasses) Questionnaire PHQ-9 Over the last 2 weeks, how often have you been bothered by any of the following problems? 1. Little interest or pleasure in doing things: not at all 2. Feeling down, depressed, or hopeless: not at all 3. Trouble falling or staying asleep, or sleeping too much: not at all 4. Feeling tired or having little energy: not at all 5. Poor appetite or overeating: not at all 6. Feeling bad about yourself - or that you are a failure or have let yourself or your family down: not at all 7. Trouble concentrating on things, such as reading the newspaper or watching television: not at all 8. Moving or speaking so slowly that other people could have noticed. Or the opposite - being so fidgety or restless that you have been moving around a lot more than usual: not at all 9. Thoughts that you would be better off or of hurting yourself in some way: not at all Total score: 0 Depression Screening Interpretation: Negative Depression Screening Done: Yes 13244 - PHQ-9 Billing: Yes Source: Developed by Drs. Ming Hawkins, Radha Mcnamara, Nathan Bettencourt and colleagues, with an educational magdalena from [employer]. Thrive Questionnaire Date Thrive assessed: 07/25/23 AUDIT C Alcohol Use Questionnaire (AUDIT-C) 1. How often do you have a drink containing alcohol?: Monthly or less 2. How many drinks containing alcohol do you have on a typical day when you are drinking?: 1 or 2 3. How often do you have six or more drinks on one occasion?: Never Total Score: 1 CHIN-7 AMB Questionnaire CHIN-7 Date CHIN - 7 assessed: 10/20/23 Feeling nervous, anxious, or on edge: 2 = More than half the days Not being able to stop or control worryin = Several days Worrying too much about different things: 2 = More than half the days Trouble relaxin = Several days Being so restless that it is hard to sit still: 1 = Several days Becoming easily annoyed or irritable: 1 = Several days Feeling afraid as if something awful might happen: 1 = Several days Total CHIN-7 score (0-4 normal; 5-9 mild; 10-14 moderate; 15-21 severe): 9 Source: Developed by Drs. Ming Hawkins, Radha Mcnamara, Nathan Bettencourt and colleagues, with an educational magdalena from [employer]. CHIN-7 Assessment Billing CHIN-7 Assessment Tool: CHIN-7 Assessment 33382 Physical exam (Primary Care) Vital Signs: Last Vital Signs Pulse 63 10/20/23 10:22 Resp 16 10/20/23 10:22 BP 132/80 10/20/23 10:22 Pulse Ox 94 10/20/23 10:22 Oxygen Delivery Method Room Air 10/20/23 10:22 BMI result Body Mass Index 34.9 Tobacco/Smoking Status: Tobacco use Status Tobacco use date assessed 10/20/23 10/20/23 10:30 Patient Tobacco Use Status Former Tobacco user 10/20/23 10:30 Tobacco use type Cigarette 10/20/23 10:30 e-Cigarette/Vaping Use Never Used 10/20/23 10:30 PHQ-9: PHQ-9 Score PHQ-9: Total score 0 10/20/23 10:30 Depression Screening Interpretation: Negative Thrive Assessment: Date of Thrive Assessment Date Thrive assessed 07/25/23 10/20/23 10:30 Coding Additional Codes CHIN-7 Assessment Billing - CHIN-7 Assessment Tool: CHIN-7 Assessment [id number] ([id number])
[2023-10-20 10:22] VITALS: BP 132/80; PULSE 63; RESP 16; O2SAT 94; BMI 34.9
--- NOTE | 2023-10-20 10:35 | AM.OFFVISMDC ---
Intake Vital Signs 10/20/23 10:22 10/20/23 10:36 Height 6 ft Weight 257 lb BMI 34.9 34.9 BP 132/80 Blood Pressure Location Lt brachial Position Sitting Respiration 16 Pulse 63 Pulse Source Pulse Oximeter Pulse Oximetry (%) 94 Oxygen Delivery Method Room Air Intake Visit Reasons: chk up f/u Intake Note: Patient is here for an Annual Wellness Visit. 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 Patient's past medical history significant for impaired glucose metabolism, hyperlipidemia, trigeminal neuralgia. Recently seen at [facility] for acute right-sided facial numbness and pain. 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 Has followed up with Neurology and has been started on carbamazepine and gabapentin which has been resolving his symptoms. Also reports having intermittent neck pain with radiculopathy down right upper extremity. He is interested in doing physical therapy. Today we discussed the [place] of care and end of life planning. We also reviewed his comprehensive care plan that was scanned into chart. Vaccines: Up-to-date with COVID vaccine, tetanus vaccine and pneumonia vaccine, considering flu vaccine Colorectal cancer screening- willing to do Cologuard HPI Comments History of Present Illness Details reviewed past medical history- yes reviewed surgical / hospitalization history- yes reviewed current medications- yes reviewed family history- yes home safety throw rugs? grab bars? raised toilet seat? working smoke detectors? activities of daily living difficulty bathing or showering? difficulty dressing? difficulty using the toilet? difficulty getting in and out of bed? difficulty walking? receives help from other person's with any of the above tasks? instrumental activities of daily living uses telephone - gets to place out of walking distance- go shopping for groceries- repairs own meals- does own minor home maintenance- does own laundry- does own housework- manages own money- currently takes medication- end of life planning discussed advanced directives- yes advanced directives on file? discussed wishes expressed in advanced directives. fall risk have you had any falls with injuries in the past year? have you had 2 or more falls in the past year? fall risk assessment: [facility] Medical History History of deviated nasal septum Surgical History History of Achilles tendon repair Family History Mother Diabetes Father Heart disease Afib Sister Breast cancer, Onset Age: 53 Social History Housing: House Alcohol intake: current Alcohol intake frequency: holidays/special occasions only Alcohol type: beer Patient Tobacco Use Status: Former Tobacco user Tobacco use type: Cigarette e-Cigarette/Vaping Use: Never Used Second Hand Smoke Exposure: No service: No Current occupational status: unemployed Cognitive needs: No Hearing needs: No Vision needs: Yes (glasses) Questionnaire Medicare Wellness Checkup What [age] 65-67 What gender do you identify with?: male During the past 4 weeks, how much have you been bothered by emotional problems such as feeling anxious, depressed, irritable, sad or downhearted, and blue?: moderately During the past 4 weeks, has your physical & emotional health limited your social activities with family, friends, neighbors, or groups?: not at all During the past 4 weeks, how much bodily pain have you generally had?: moderate pain During the past 4 weeks, was someone available to help you if you needed & wanted help?: yes, some During the past 4 weeks, what was the hardest physical activity you could do for at least 2 minutes?: moderate Can you get to places out of walking distance without help? (For eg., can you travel alone on buses, taxis or drive your car?): Yes Can you go shopping for groceries or clothes without someone's help?: Yes Can you prepare your own meals?: Yes Can you do your housework without help?: Yes Because of any health problems, do you need the help of another person with your personal care needs such as eating, bathing, dressing or getting around the house?: No Can you handle your own money without help?: Yes During the past 4 weeks, how would you rate your health in general?: good During the past 4 weeks how have things been going for you?: pretty well Are you having difficulties driving your car?: no Do you always fasten your seat belt when you are in a car?: yes, usually During past 4 weeks, have you been bothered by the following: never: Sexual problems?, Trouble eating well?, Teeth or denture problems? and Problems using the telephone?, seldom: Falling or dizzy when standing up and sometimes: Tiredness or fatigue? Have you fallen 2 or more times in the past year?: No Are you afraid of falling?: No Are you a smoker?: no During the past 4 weeks, how many drinks of wine, beer, or other alcoholic beverages did you have?: 2-5 drinks per week Do you exercise for about 20 minutes 3 or more times a week?: no, I usually do not exercise this much Have you been given information to help with the following?: no: Hazards in your house that might hurt you? and no: Keeping track of your medications? How often do you have trouble taking medicines the way you have been told to take them?: I always take medicine as prescribed How confident are you that you can control & manage most of your health problems?: very confident What is your race?: White Mini Mental State Exam (MMSE) Orientation What is the (year) (season) (date) (day) (month)?: year Where are we (state) (county) (town or city) (hospital) (floor)?: town or city Attention & Calculation (CHOOSE ONE) Ask pt to begin with 100 & count backward by 7. Stop after 5 repeats. If pt cannot ask them to spell the word WORLD backward.: 93 Spell WORLD backwards (DLROW): 5 letters Score Score: 8 Activity of Daily Living Bathing - sponge bath, tub bath or shower: receives no assistance (gets in/out by self, if usual bathing means Dressing - getting clothes from closets & drawers, including inner/outer garments & fasteners.: gets clothes & gets completely dressed without help Toileting - going to the 'toilet room' for urine/bowel elimination & cleaning self/arranging clothes: goes to toilet room, cleans self, arranges clothes without help Transfer: moves in & out of bed and chair without help (may use support object) Continence: controls urination/bowel movements completely by self Feeding: feeds self without help Total Score: 0 Information obtained from: patient Using telephone: independent Traveling: independent Shopping: independent Preparing meals: independent Housework: independent Taking medicine: independent Managing money: independent PHQ-9 Over the last 2 weeks, how often have you been bothered by any of the following problems? 1. Little interest or pleasure in doing things: several days 2. Feeling down, depressed, or hopeless: not at all 3. Trouble falling or staying asleep, or sleeping too much: more than half the days 4. Feeling tired or having little energy: several days 5. Poor appetite or overeating: several days 6. Feeling bad about yourself - or that you are a failure or have let yourself or your family down: not at all 7. Trouble concentrating on things, such as reading the newspaper or watching television: not at all 8. Moving or speaking so slowly that other people could have noticed. Or the opposite - being so fidgety or restless that you have been moving around a lot more than usual: not at all 9. Thoughts that you would be better off or of hurting yourself in some way: not at all Total score: 5 Depression Screening Interpretation: Positive Depression Screening Follow-up: Existing condition and Declines treatment Depression Screening Done: Yes 05609 - PHQ-9 Billing: Yes Source: Developed by Drs. Ming Hawkins, Radha Mcnamara, Nathan Bettencourt and colleagues, with an educational magdalena from [employer]. Physical Exam Vital Signs: Last Vital Signs Pulse 63 10/20/23 10:22 Resp 16 10/20/23 10:22 BP 132/80 10/20/23 10:22 Pulse Ox 94 10/20/23 10:22 Oxygen Delivery Method Room Air 10/20/23 10:22 BMI result Body Mass Index 34.9 HEENT Other: hearing screening whisper test- pass Eyes Other: vision screening- 20 0 OS OD OU Other: urinary incontinence? no Neuro Other: balance Romberg- normal tandem walk test- able walk-in turned test- able rise from sit to stand- within 2 seconds Results AMB Hemoglobin A1c AMB Hemoglobin A1c 5.5 % Last Edit by ERICH Billings on 10/20/23 10:40 Results Reviewed Results Reviewed: Laboratory Last Values Hgb A1c (Clinic) 5.5 % (4.0-6.0) 10/20/23 10:39 Assessment & Plan Assessment & Plan (1) Annual wellness visit: Code(s): Z00.00 - Encounter for general adult medical examination without abnormal findings (2) Colon cancer screening: Code(s): Z12.11 - Encounter for screening for malignant neoplasm of colon Plan: Willing to do Cologuard (3) Cervical radiculopathy: Code(s): M54.12 - Radiculopathy, cervical region Plan: Has been having intermittent cervical spine pain that often radiates down right upper extremity. Interested in doing formal physical therapy. Plan As per [facility] Orders: Orders Hemoglobin A1c 10/20/23 R73.09 - Other abnormal glucose Comprehensive [place]. Panel Fast 10/20/23 R73.09 - Other abnormal glucose Lipid Panel 10/20/23 E78.9 - Disorder of lipoprotein metabolism, unspecified PT Evaluation and Treatment 10/20/23 M54.12 - Radiculopathy, cervical region AMB Hemoglobin A1c 10/20/23 Z13.1 - Encounter for screening for diabetes mellitus Prostate Specific Antigen Scr 10/20/23 Z12.11 - Encounter for screening for malignant neoplasm of colon, Z12.5 - Encounter for screening for malignant neoplasm of prostate Complete Blood Count no Diff 10/20/23 E78.9 - Disorder of lipoprotein metabolism, unspecified Referrals Cologuard Test Z12.11 - Encounter for screening for malignant neoplasm of colon Medications: New blood pressure test kit-large As directed 1 ea 0RF I10 - Essential (primary) hypertension Quality Reporting (2019) Depression/Bipolar (159/160/161/177) PHQ-9: Total score: 5 Coding Level of Care Code Medicare First (G0438) Est Pt Level 3 (36694) Diagnoses Annual wellness visit Z00.00 Colon cancer screening Z12.11 Cervical radiculopathy M54.12 CPT Codes Advance Care Planning - Time spent: 1-15 minutes, not on file ([id number]) Advance Care Planning Advance Care Planning discussion: Exists, not on file Date of discussion: 10/20/23 Forms completed: KIRK Time spent: 1-15 minutes, not on file Actual minutes spent: 4
[2023-10-20 10:36] VITALS: BMI 34.9
== END 2023-10-20 11:11 | disposition home or self-care (01) ==
PROVIDERS: PCP Physician Assistant; Visit Provider Physician Assistant
DX: Z00.00 Encounter for general adult medical examination without abnormal findings (principal); R73.09 Other abnormal glucose; E78.5 Hyperlipidemia, unspecified; M54.12 Radiculopathy, cervical region
CPT/HCPCS: 1124F; 83036; 99396

== ENCOUNTER 2024-01-10 15:36 | Outpatient (AMB) | payer OTHER, SELFPAY ==
--- NOTE | 2024-01-10 15:47 | MHC.OFFWIV ---
Intake Vital Signs 01/10/24 15:52 Height 6 ft Weight 261 lb BMI 35.4 BP 140/80 H Blood Pressure Location Rt brachial Position Sitting Pulse 70 Pulse Source Pulse Oximeter Pulse Oximetry (%) 97 Oxygen Delivery Method Room Air Intake Visit Reasons: EP-rt knee pain-work injury Intake Note: Patient here for right knee pain, injured while at work last wednesday. Patient Tobacco Use Status: Former Tobacco user Allergies No Known Allergies Allergy (Verified 01/10/24 15:53) Do you need a note to return to daycare/school/sports/work: Yes HPI EP-rt knee pain-work injury HPI Details This note is constructed using voice recognition software. While every effort has been made to ensure accuracy, round kiln drawer errors may have been included. The patient is a 48 year old male who presents to the clinic today with right knee pain for the past one-week. He reports that he works typically doing a different job, but for the last couple of weeks he has been feeling in doing a job that involves lots of standing, stooping, bending, lifting, twisting, and he had been doing quite a bit of twisting of his knee prior to the injury. He reports that he woke up the next day feeling quite sore on the medial aspect of her of his knee, he tried some ibuprofen which helped a little but did not completely resolve his pain. The pain seems to be worse since symptom onset. He reports that he is having more difficulty going down the stairs, or when he is going from sitting to standing. He denies redness, warmth. He does report some limping. [facility] Medical History History of deviated nasal septum Surgical History History of Achilles tendon repair Family History Mother Diabetes Father Heart disease Afib Sister Breast cancer, Onset Age: 53 Social History Housing: House Alcohol intake: current Alcohol intake frequency: holidays/special occasions only Alcohol type: beer Patient Tobacco Use Status: Former Tobacco user Tobacco use type: Cigarette e-Cigarette/Vaping Use: Never Used Second Hand Smoke Exposure: No service: No Current occupational status: unemployed Cognitive needs: No Hearing needs: No Vision needs: Yes (glasses) Review of Systems Const All systems reviewed & are unremarkable except as noted in HPI and below Physical Exam Vital Signs: Last Vital Signs Pulse 70 01/10/24 15:52 BP 140/80 H 01/10/24 15:52 Pulse Ox 97 01/10/24 15:52 Oxygen Delivery Method Room Air 01/10/24 15:52 BMI result Body Mass Index 35.4 Const General: cooperative, healthy appearing, comfortable, no acute distress and well developed Orientation/consciousness: patient oriented x3 Limitations: no limitations Resp Effort & Inspection: normal respiratory effort and able to speak in complete sentences Skin General skin exam: no rashes or lesions noted Neuro General: patient oriented x3 Extrem Other: Right knee full range of motion. Medial joint line tenderness on valgus maneuver. No erythema, warmth, ecchymosis. Distal neurovascular exam intact. Strength 5/5. General: Yes normal to inspection Assessment & Plan Assessment & Plan (1) Right knee sprain: Code(s): S83.91XA - Sprain of unspecified site of right knee, initial encounter Qualifiers: Encounter type: initial encounter Involved ligament of knee: medial collateral ligament Qualified Code(s): S83.411A - Sprain of medial collateral ligament of right knee, initial encounter Plan: Advised rest, ice, compression, elevation. Patient had not been previously doing compression, Kirit wrap up provided. Offered crutches, however patient declined. Letter provided for 2 days off from work, and restrictions on returned to work. Advised patient to have repeat examination should symptoms persist or worsen. Plan See above for full details and plan. Coding Level of Care Code Est Pt Level 3 (56464) Diagnoses Sprain of medial collateral ligament of right knee, initial encounter S83.411A Encounter type: initial encounter Involved ligament of knee: medial collateral ligament
[2024-01-10 15:52] VITALS: BP 140/80; PULSE 70; O2SAT 97; BMI 35.4
== END 2024-01-10 16:30 | disposition home or self-care (01) ==
PROVIDERS: PCP Physician Assistant; Visit Provider Registered Nurse
DX: S83.411A Sprain of medial collateral ligament of right knee, initial encounter (principal)

== ENCOUNTER → 2024-01-10 15:36 | Outpatient (BNVA) | payer OTHER, SELFPAY | PROVIDERS: PCP Physician Assistant; Visit Provider Registered Nurse | DX: S83.91XA Sprain of unspecified site of right knee, initial encounter (principal); X58.XXXA Exposure to other specified factors, initial encounter; Y93.9 Activity, unspecified; Y92.9 Unspecified place or not applicable; Y99.0 Civilian activity done for income or pay | CPT/HCPCS: 99212 ==

== ENCOUNTER 2024-01-31 09:05 | Outpatient (AMB) | payer OTHER, SELFPAY ==
--- NOTE | 2024-01-31 09:20 | MHC.PC.OV ---
Vital Signs 01/31/24 09:21 Height 6 ft Weight 264 lb 8 oz BMI 35.9 BP 130/78 Blood Pressure Location Lt brachial Position Sitting Pulse 74 Pulse Source Pulse Oximeter Pulse Oximetry (%) 98 Oxygen Delivery Method Room Air Intake Visit Reasons: rt leg pain regard to injury from 01/09 Intake Note: Patient is here to follow up on right leg pain due to work injury on 01/03/24. Requesting for return to work full duty letter. 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 by: Self / Same As Patient Allergies No Known Allergies Allergy (Verified 01/31/24 09:59) Medication List - Last Reconciled 01/31/24 by Jose Albert MD blood pressure test kit-large As directed carbamazepine 200 mg PO TID Tobacco use date assessed: 01/31/24 Dental Screening Dental Screen Date: 01/31/24 Did you have a dental visit in the last 12 months?: Yes Did you have a dental problem in the last 6 months where you did not have access to dental care?: No Was dental information given to patient?: Patient has dentist [facility] Medical History History of deviated nasal septum Surgical History History of Achilles tendon repair Family History Mother Diabetes Father Heart disease Afib Sister Breast cancer, Onset Age: 53 Social History Housing: House Alcohol intake: current Alcohol intake frequency: holidays/special occasions only Alcohol type: beer Patient Tobacco Use Status: Former Tobacco user Tobacco use type: Cigarette e-Cigarette/Vaping Use: Never Used Second Hand Smoke Exposure: Yes service: No Current occupational status: unemployed Cognitive needs: No Hearing needs: No Vision needs: Yes (glasses) Questionnaire Thrive Questionnaire Date Thrive assessed: 07/25/23 AUDIT C Alcohol Use Questionnaire (AUDIT-C) 1. How often do you have a drink containing alcohol?: Monthly or less 2. How many drinks containing alcohol do you have on a typical day when you are drinking?: 1 or 2 Total Score: 1 CHIN-7 AMB Questionnaire CHIN-7 Date CHIN - 7 assessed: 01/31/24 Feeling nervous, anxious, or on edge: 0 = Not at all Not being able to stop or control worryin = Not at all Worrying too much about different things: 0 = Not at all Trouble relaxin = Not at all Being so restless that it is hard to sit still: 0 = Not at all Becoming easily annoyed or irritable: 0 = Not at all Feeling afraid as if something awful might happen: 0 = Not at all Total CHIN-7 score (0-4 normal; 5-9 mild; 10-14 moderate; 15-21 severe): 0 Source: Developed by Drs. Ming Hawkins, Radha Mcnamara, Nathan Bettencourt and colleagues, with an educational magdalena from [employer]. Physical exam (Primary Care) Vital Signs: Last Vital Signs Pulse 74 01/31/24 09:21 BP 130/78 01/31/24 09:21 Pulse Ox 98 01/31/24 09:21 Oxygen Delivery Method Room Air 01/31/24 09:21 BMI result Body Mass Index 35.9 Tobacco/Smoking Status: Tobacco use Status Tobacco use date assessed 01/31/24 01/31/24 09:28 Patient Tobacco Use Status Former Tobacco user 01/31/24 09:28 Tobacco use type Cigarette 01/31/24 09:28 e-Cigarette/Vaping Use Never Used 01/31/24 09:28 Thrive Assessment: Date of Thrive Assessment Date Thrive assessed 07/25/23 01/31/24 09:28 Coding Level of Care Code Est Pt Level 3 (81368) Complex EM visit Add On G2211 Diagnoses Right knee sprain S83.91XA Assessment & Plan Assessment & Plan (1) Right knee sprain: Code(s): S83.91XA - Sprain of unspecified site of right knee, initial encounter Plan: History of Present Illness The patient is a 48-year-old male presenting with a right knee ligament injury. The injury occurred on January 02 during a work-related activity that involved continuous bending and lifting. Initial symptoms included significant pain and discomfort in the right knee, prompting a visit to urgent care on January 09. The attending clinician at urgent care suggested the pain was likely due to a ligament issue and recommended resting and icing the knee while being out of work for three days. Further accommodations were suggested, which included sitting down or icing the knee as necessary. The patient reports improvement in symptoms since then, though some soreness persists. Currently, the patient has been absent from work for two weeks and is seeking clearance to return without restrictions. 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 - Job Demands: Occasionally transferred to other departments, which require additional physical activity such as bending and lifting. Review of Systems - Musculoskeletal: Reports residual soreness in the right knee. Physical Exam General: Cooperative and healthy appearing Nutritional Appearance: Well nourished Orientation/consciousness: Patient oriented x3 Limitations: No limitations Head: Normal to inspection General: Appearance normal, both eyes and all related structures Neck: Normal visual inspection Chest: Normal palpation of entire chest wall Respiratory: Normal respiratory effort Neurology: Patient oriented x3 Results Plan - Assess and confirm the resolution of the right knee ligament injury. - Provide a note permitting return to work without restrictions based on the current evaluation. Patient was informed and verbally consented to the use of an ambient scribe for clinic note documentation during this visit. Discussion Notes I have discussed with the patient that his right knee appears to have improved sufficiently to return to work without restrictions. We reviewed that maintaining muscle strength and flexibility will be important to prevent future injuries. The patient understands that if symptoms worsen, further evaluation may be needed. All questions were addressed, and the patient agreed with the plan moving forward. Patient Instructions - Return to work as discussed with no restrictions on work duties. - Continue with icing and resting the knee as needed if soreness persists. - If symptoms worsen or do not continue to improve, seek further evaluation.
[2024-01-31 09:21] VITALS: BP 130/78; PULSE 74; O2SAT 98; BMI 35.9
== END 2024-01-31 10:12 | disposition home or self-care (01) ==
PROVIDERS: PCP Physician Assistant; Visit Provider Internal Medicine
DX: S83.91XA Sprain of unspecified site of right knee, initial encounter (principal)

== ENCOUNTER → 2024-01-31 09:05 | Outpatient (BNVA) | payer OTHER, SELFPAY | PROVIDERS: PCP Physician Assistant; Visit Provider Internal Medicine | DX: S83.91XD Sprain of unspecified site of right knee, subsequent encounter (principal); X58.XXXD Exposure to other specified factors, subsequent encounter | CPT/HCPCS: 96127; 99212 ==

== ENCOUNTER 2024-04-29 06:47 | Outpatient (REF) | payer OTHER, SELFPAY ==
[2024-04-29 08:39] LABS: Hematocrit 44.3 % (42.0-52.0); Hemoglobin 15.7 g/dl (14.0-18.0); Mean Corpuscular HGB Conc 35.4 g/dl (31.0-36.0); Mean Corpuscular Hemoglobin 31.7 pg (27.0-33.0); Mean Corpuscular Volume 89.3 fL (80.0-98.0); Mean Platelet Volume 8.6 fL (9.4-12.4); Platelet Count 213 X10*3/uL (160-400); Red Blood Count 4.96 X10*6/uL (4.60-5.80); Red Cell Distribution Width 12.1 % (11.0-16.0); White Blood Count 6.3 X10*3/uL (4.8-10.8)
[2024-04-29 08:52] LABS: Estimated Average Glucose 108 mg/dL; Hemoglobin A1c % 5.4 % (<6.0)
[2024-04-29 09:21] LABS: Alanine Aminotransferase 28 U/L (0-40); Albumin Level 4.3 g/dL (3.5-5.0); Alkaline Phosphatase 63 U/L (39-117); Anion Gap 10 (12-20); Aspartate Amino Transferase 22 U/L (5-37); Bilirubin Total 0.5 mg/dL (0.0-1.0); Blood Urea Nitrogen 13 mg/dL (9-16); Carbon Dioxide 27 mmol/L (22-29); Chloride 107 mmol/L (96-108); Cholesterol 231 mg/dL (<200); Estimated Glomerular Filt Rate > 60; Glucose Fasting 112 mg/dL (60-99); HDL Cholesterol 41 mg/dL (>40); LDL Cholesterol Calculated 142 mg/dL (<100); Sodium 140 mmol/L (135-145); Total Protein 7.2 g/dL (6.5-8.0); Triglycerides 242 mg/dL (<150)
[2024-04-29 09:30] LABS: Prostate Specific Antigen Scr 0.31 ng/mL (<0.05-4.0)
== END 2024-04-29 06:48 | disposition home or self-care (01) ==
LOC: HO.LAB 06:47
PROVIDERS: PCP Physician Assistant; Visit Provider Physician Assistant
DX: R73.09 Other abnormal glucose (principal); E78.9 Disorder of lipoprotein metabolism, unspecified; Z12.5 Encounter for screening for malignant neoplasm of prostate; Z12.11 Encounter for screening for malignant neoplasm of colon
CPT/HCPCS: 36415; 80053; 80061; 83036; 84153; 85027

== ENCOUNTER 2024-05-05 15:02 | Outpatient (AMB) | payer OTHER, SELFPAY ==
[2024-05-05 15:10] VITALS: BP 138/88; PULSE 74; RESP 18; TEMP 37.2; O2SAT 96; BMI 35.4
--- NOTE | 2024-05-05 15:10 | MHC.PC.OV ---
Vital Signs 05/05/24 15:10 Height 6 ft Weight 261 lb 3.2 oz BMI 35.4 BP 138/88 Blood Pressure Location Lt brachial Position Sitting Respiration 18 Pulse 74 Pulse Source Pulse Oximeter Temp 98.9 F Temp Source Oral Pulse Oximetry (%) 96 Oxygen Delivery Method Room Air Intake Visit Reasons: f/u [place], AJAYD Philosophy Faculty Required: No Accompanied by: Self / Same As Patient Allergies No Known Allergies Allergy (Verified 05/05/24 15:21) Medication List - Last Reconciled 05/05/24 by ELEONORA Ramirez carbamazepine 200 mg PO TID Tobacco use date assessed: 05/05/24 Dental Screening Dental Screen Date: 05/05/24 Did you have a dental visit in the last 12 months?: No Did you have a dental problem in the last 6 months where you did not have access to dental care?: No HPI f/u [place], AJAYD HPI Details The patient is a 48 year old male with history of right trigeminal neuralgia, cuboidal tunnel syndrome on right, Monoallelic mutation of PALB2 gene Patient is presenting today for follow up appointment primarily to review previous labs Patient reports that he works in a [employer] service and he is always around food He reports that high cholesterol and diabetes also run in his family Patient reports that his blood pressure goes up intermittently as well He reports that he gets extremely anxious when his trigeminal neuralgia is acting up Overall reports that he is feeling okay, denies chest pain shortness of breath, heart palpitation and dizziness He denies any abdominal pain, change in bowel habits or any urinary symptoms PFSH Medical History History of deviated nasal septum Surgical History History of Achilles tendon repair Family History Mother Diabetes Father Heart disease Afib Sister Breast cancer, Onset Age: 53 Social History Housing: House Alcohol intake: current Alcohol intake frequency: holidays/special occasions only Alcohol type: beer Patient Tobacco Use Status: Former Tobacco user Tobacco use type: Cigarette e-Cigarette/Vaping Use: Never Used Second Hand Smoke Exposure: Yes service: No Current occupational status: employed 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 1. Little interest or pleasure in doing things: not at all 2. Feeling down, depressed, or hopeless: not at all 3. Trouble falling or staying asleep, or sleeping too much: not at all 4. Feeling tired or having little energy: not at all 5. Poor appetite or overeating: not at all 6. Feeling bad about yourself - or that you are a failure or have let yourself or your family down: not at all 7. Trouble concentrating on things, such as reading the newspaper or watching television: not at all 8. Moving or speaking so slowly that other people could have noticed. Or the opposite - being so fidgety or restless that you have been moving around a lot more than usual: not at all 9. Thoughts that you would be better off or of hurting yourself in some way: not at all Total score: 0 Depression Screening Interpretation: Negative Depression Screening Done: Yes 23478 - PHQ-9 Billing: Yes Source: Developed by Drs. Ming Hawkins, Radha Mcnamara, Nathan Bettencourt and colleagues, with an educational magdalena from [employer]. Thrive Questionnaire Date Thrive assessed: 05/05/24 I am a: Patient What is your living situation today?: I have a steady place to live Within the past 12 months, did the food you bought not last and you didn't have the money to get more?: Never true Within the past 12 months, did you worry whether your food would run out before you got money to buy more?: Never true Do you have trouble paying for medicines?: No Do you have trouble getting transportation to medical appointments?: No Do you have trouble paying your heating and electricity bill?: No Do you have trouble taking care of your child, family member or friend?: No Do you have trouble with day-to-day activities such as bathing, preparing meals, shopping, managing finances, etc.?: No Are you currently unemployed and looking for a job?: No Are you interested in more education?: No Please select the resources that you would like help with: None Currently or been in a relationship where the following occur: No concerns reported THRIVE Score: 0 AUDIT C Alcohol Use Questionnaire (AUDIT-C) 1. How often do you have a drink containing alcohol?: Monthly or less 2. How many drinks containing alcohol do you have on a typical day when you are drinking?: 1 or 2 Total Score: 1 CHIN-7 AMB Questionnaire CHIN-7 Date CHIN - 7 assessed: 05/05/24 Feeling nervous, anxious, or on edge: 1 = Several days Not being able to stop or control worryin = Several days Worrying too much about different things: 0 = Not at all Trouble relaxin = Not at all Being so restless that it is hard to sit still: 0 = Not at all Becoming easily annoyed or irritable: 0 = Not at all Feeling afraid as if something awful might happen: 0 = Not at all Total CHIN-7 score (0-4 normal; 5-9 mild; 10-14 moderate; 15-21 severe): 2 Source: Developed by Drs. Ming Hawkins, Radha Mcnamara, Nathan Bettencourt and colleagues, with an educational magdalena from [employer]. CHIN-7 Assessment Billing CHIN-7 Assessment Tool: CHIN-7 Assessment 11586 Review of Systems Const Denies headache(s) Eyes Denies loss of vision ENT Denies vertigo, Denies dizziness, Denies headache(s) and Denies sore throat Card Denies chest pain, Denies leg edema and Denies lightheadedness Resp Denies cough, Denies hemoptysis and Denies wheezing GI Denies abdominal pain, Denies melena, Denies constipation, Denies diarrhea and Denies vomiting Denies dysuria, Denies urinary frequency and Denies urinary urgency Musc Denies arthralgias, Denies joint swelling, Denies numbness and Denies tingling Neuro Denies Abnormal speech present, Denies behavioral changes, Denies vertigo, Denies dizziness, Denies headache(s), Denies loss of vision, Denies memory loss, Denies numbness and Denies tingling Psych Denies anxiety, Denies behavioral changes, Denies depression, Denies memory loss and Denies panic attacks Jose Eduardo/Lymph Denies easy bleeding and Denies easy bruising Aller/Immun Denies wheezing Physical exam (Primary Care) Vital Signs: Last Vital Signs Temp 98.9 F 05/05/24 15:10 Pulse 74 05/05/24 15:10 Resp 18 05/05/24 15:10 BP 138/88 05/05/24 15:10 Pulse Ox 96 05/05/24 15:10 Oxygen Delivery Method Room Air 05/05/24 15:10 BMI result Body Mass Index 35.4 Tobacco/Smoking Status: Tobacco use Status Tobacco use date assessed 05/05/24 05/05/24 15:16 Patient Tobacco Use Status Former Tobacco user 05/05/24 15:16 Tobacco use type Cigarette 05/05/24 15:16 e-Cigarette/Vaping Use Never Used 05/05/24 15:16 PHQ-9: PHQ-9 Score PHQ-9: Total score 0 05/07/24 10:27 Depression Screening Interpretation: Negative Thrive Assessment: Date of Thrive Assessment Date Thrive assessed 05/05/24 05/05/24 15:16 Currently or been in a relationship where the following occur: No concerns reported Const General: healthy appearing, no acute distress, alert and awake Nutritional Appearance: well nourished Orientation/consciousness: oriented to person, oriented to place and oriented to time HENMT Ears: external ears normal General nose exam: Normal external nose present Eyes Conjunctivae: conjunctivae normal Sclerae: sclerae normal Pupils: Equal, round and reactive pupils present Neck Neck: Yes no lymphadenopathy and Yes no JVD Thyroid: Thyroid normal Carotids: no bruits Resp Effort & Inspection: normal respiratory effort and not tachypneic Auscultation: no crackles, no rales, no rhonchi and no wheezes Cardio Rate: regular rate Rhythm: regular rhythm Heart sounds: no murmurs and normal S1 and S2 GI Palpation (GI): Soft to palpation, nontender, no hepatomegaly and no splenomegaly Auscultation: normal bowel sounds Skin General skin exam: no rashes or lesions noted and dry skin Neuro General: oriented to person, oriented to place and oriented to time Cranial nerves: Yes Equal, round and reactive pupils present Speech: No Abnormal speech present Gait exam (Neuro): Normal gait present Motor exam (neuro): no tremor noted Extrem Right upper extremity: full ROM Left upper extremity: full ROM Right lower extremity: full ROM; no edema Left lower extremity: full ROM; no edema Psych Mental Status: mental status grossly normal Speech and movement: Normal speech and movement present Affect: normal affect Attitude: cooperative Thought process: Normal thought process present Results Reviewed Results Reviewed: Laboratory Tests 05/13/19 04/29/24 Unknown 07:10 Sodium 140 Potassium 4.0 Chloride 107 Carbon Dioxide 27 Anion Gap 10 L BUN 13 Creatinine 0.68 Estimated GFR > 60 Fasting Glucose 112 H Hemoglobin A1c % 5.4 AST 22 ALT 28 Alkaline Phosphatase 63 Triglycerides 242 H Cholesterol 231 H LDL Cholesterol, Calc 142 H HDL Cholesterol 41 PSA Screen 0.31 Urine Color YELLOW Urine Appearance CLEAR Urine pH 5.5 Ur Specific [place] >= 1.030 H Urine Protein NEG Urine Glucose (UA) NEG Urine Ketones NEG Urine Blood NEG Urine Nitrite NEG Urine WBC (Auto) NEG Urine RBC 0 Urine WBC 0 Ur Epithelial Cells NONE Urine Bacteria NONE Coding Level of Care Code Est Pt Level 4 (21036) Diagnoses Hypertension, unspecified type I10 Hypertension type: unspecified Right trigeminal neuralgia G50.0 Impaired glucose metabolism R73.09 Mixed hypercholesterolemia and hypertriglyceridemia E78.2 Additional Codes CHIN-7 Assessment Billing - CHIN-7 Assessment Tool: CHIN-7 Assessment 78975 ([id number]) PHQ-9 - 08468 - PHQ-9 Billing: Yes ([id number]) Time Spent (min) 38 Assessment & Plan Assessment & Plan (1) HTN (hypertension): Code(s): I10 - Essential (primary) hypertension Category: Medical Qualifiers: Hypertension type: unspecified Qualified Code(s): I10 - Essential (primary) hypertension Plan: Blood pressure 138/88-reinforced low-sodium diet We will continue to monitor (2) Right trigeminal neuralgia: Code(s): G50.0 - Trigeminal neuralgia Category: Medical Plan: Patient denies pain today. Continue carbamazepine 200 mg p.o. t.i.d. Follow up with Neurology as scheduled (3) Impaired glucose metabolism: Code(s): R73.09 - Other abnormal glucose Category: Medical Plan: Fasting glucose 112 previously it was 133. Patient A1c is 5.4%. Reinforced low sugar/carbohydrate and activity as tolerated We will recheck labs in 3 months (4) Mixed hypercholesterolemia and hypertriglyceridemia: Code(s): E78.2 - Mixed hyperlipidemia Category: Medical Plan: The patient triglycerides was 242, cholesterol 231, and LDL 142, HDL 41 The patient would like to try dietary modification and exercise before being started on any medication Reinforced a diet low in cholesterol and activity as tolerated, we will recheck a lipid panel in 3 months Plan Patient is to follow up in 3 months, repeat labs prior to appointment Orders: Orders TSH reflex Free T4 3 Months I10 - Essential (primary) hypertension, G50.0 - Trigeminal neuralgia, E66.09 - Other obesity due to excess calories, Z68.38 - Body mass index [BMI] 38.0-38.9, adult, R73.09 - Other abnormal glucose, E78.9 - Disorder of lipoprotein metabolism, unspecified Glucose Fasting 3 Months I10 - Essential (primary) hypertension, G50.0 - Trigeminal neuralgia, E66.09 - Other obesity due to excess calories, Z68.38 - Body mass index [BMI] 38.0-38.9, adult, R73.09 - Other abnormal glucose, E78.9 - Disorder of lipoprotein metabolism, unspecified Complete Blood Count Auto Diff 3 Months I10 - Essential (primary) hypertension, G50.0 - Trigeminal neuralgia, E66.09 - Other obesity due to excess calories, Z68.38 - Body mass index [BMI] 38.0-38.9, adult, R73.09 - Other abnormal glucose, E78.9 - Disorder of lipoprotein metabolism, unspecified Comprehensive Cranberry. Panel Fast 3 Months I10 - Essential (primary) hypertension, G50.0 - Trigeminal neuralgia, E66.09 - Other obesity due to excess calories, Z68.38 - Body mass index [BMI] 38.0-38.9, adult, R73.09 - Other abnormal glucose, E78.9 - Disorder of lipoprotein metabolism, unspecified Lipid Panel 3 Months I10 - Essential (primary) hypertension, G50.0 - Trigeminal neuralgia, E66.09 - Other obesity due to excess calories, Z68.38 - Body mass index [BMI] 38.0-38.9, adult, R73.09 - Other abnormal glucose, E78.9 - Disorder of lipoprotein metabolism, unspecified UA CC w/rflx Micro + Cult 3 Months I10 - Essential (primary) hypertension, G50.0 - Trigeminal neuralgia, E66.09 - Other obesity due to excess calories, Z68.38 - Body mass index [BMI] 38.0-38.9, adult, R73.09 - Other abnormal glucose, E78.9 - Disorder of lipoprotein metabolism, unspecified Vitamin D 25-OH Total 3 Months I10 - Essential (primary) hypertension, G50.0 - Trigeminal neuralgia, E66.09 - Other obesity due to excess calories, Z68.38 - Body mass index [BMI] 38.0-38.9, adult, R73.09 - Other abnormal glucose, E78.9 - Disorder of lipoprotein metabolism, unspecified Hemoglobin A1c 3 Months I10 - Essential (primary) hypertension, G50.0 - Trigeminal neuralgia, E66.09 - Other obesity due to excess calories, Z68.38 - Body mass index [BMI] 38.0-38.9, adult, R73.09 - Other abnormal glucose, E78.9 - Disorder of lipoprotein metabolism, unspecified
== END 2024-05-05 15:36 | disposition home or self-care (01) ==
LOC: HO.HMCH 15:02
PROVIDERS: PCP Physician Assistant
DX: I10 Essential (primary) hypertension (principal); G50.0 Trigeminal neuralgia; R73.09 Other abnormal glucose; E78.2 Mixed hyperlipidemia

== ENCOUNTER → 2024-05-05 15:02 | Outpatient (BNVA) | payer OTHER, SELFPAY | PROVIDERS: PCP Physician Assistant | DX: G50.0 Trigeminal neuralgia (principal); G56.21 Lesion of ulnar nerve, right upper limb; I10 Essential (primary) hypertension; E78.2 Mixed hyperlipidemia; R73.09 Other abnormal glucose; E66.09 Other obesity due to excess calories; E78.9 Disorder of lipoprotein metabolism, unspecified; Z68.38 Body mass index [BMI] 38.0-38.9, adult | CPT/HCPCS: 96127; 99212 ==